=== PATIENT | female | born 1975 | race Caucasian/White ===

== ENCOUNTER 2019-10-20 00:50 | Outpatient (CLI) | payer BC, SELFPAY ==
--- NOTE | 2019-10-20 12:02 | DI.MAMMO_ITS ---
EXAM: MAMMO SCREENING CLINICAL HISTORY: SCREENING, HX OF ABNORMAL MAMMO Z87.898 TECHNIQUE: Mammograms were interpreted according to the usual protocol including computer analysis w [employer] CAD system, tomosynthesis and C-view imaging. COMPARISON: [id number] FINDINGS: The breasts are composed of fibroglandular densities, breast density category B. No suspicious cristofer s or suspicious microcalcifications are seen. There has been no significant change. IMPRESSION: Category 1, negative mammogram. Yearly screening mammography is recommended. BI-RADS Cat 1 - Negative Breast Density - Category B - Scattered areas of fibroglandular density
== END 2019-10-20 01:10 ==
PROVIDERS: PCP Nurse Practitioner Family; Visit Provider Nurse Practitioner Family
DX: Z12.31 Encounter for screening mammogram for malignant neoplasm of breast (principal)
CPT/HCPCS: 77063; 77067

== ENCOUNTER 2019-12-16 15:17 | Outpatient (REF) | payer BC, SELFPAY ==
[2019-12-16 14:56] LABS: Bilirubin Negative (Negative); Blood Small (Negative); Clarity Clear (Clear); Glucose Negative (Negative); Ketones Negative (Negative); Leukocyte Esterase Negative (Negative); Nitrite Negative (Negative); Specific Gravity >= 1.030 (1.005-1.025); Urobilinogen 0.2 EU/dL (Up TO 0.2); pH 5.5 (5-8)
[2019-12-16 15:07] LABS: RBC 0-2 HPF (0-2); WBC 0-2 HPF (0-5)
[2019-12-16 15:08] LABS: Bacteria Negative HPF (Negative); C & S Indicated? No; Casts Negative LPF (Negative); Crystals Negative HPF (Negative); Epithelial Cells Few HPF (Negative); Mucus Negative (Negative)
== END 2019-12-16 15:37 ==
LOC: LBN 15:17
PROVIDERS: PCP Nurse Practitioner Family; Visit Provider Nurse Practitioner Gerontology
DX: R30.0 Dysuria (principal)
CPT/HCPCS: 81003; 81015

== ENCOUNTER 2020-09-22 09:07 | Outpatient (REF) | payer BC, SELFPAY ==
[2020-09-22 19:18] LABS: Anion Gap 10.8 mmol/L (3-11); BUN 14 mg/dL (7-18); CO2 23.2 mmol/L (21.0-32.0); CREATININE 0.92 mg/dL (0.55-1.02); Calcium 8.9 mg/dL (8.5-10.1); Calculated LDL 112 mg/dL (<100); Chloride 102 mmol/L (98-107); Cholesterol 180 mg/dL (<200); Glucose 93 mg/dL (74-106); HDL Cholesterol 37 mg/dL (40-60); Potassium 4.1 mmol/L (3.5-5.1); Sodium 136 mmol/L (136-145); Triglyceride 159 mg/dL (<150)
== END 2020-09-22 09:27 ==
LOC: NCHCN 09:07
PROVIDERS: PCP Nurse Practitioner Family; Visit Provider Nurse Practitioner Family
DX: Z00.00 Encounter for general adult medical examination without abnormal findings (principal)
CPT/HCPCS: 80048; 80061

== ENCOUNTER 2020-10-17 20:38 | Outpatient (REF) | payer BC, SELFPAY ==
[2020-10-20 07:31] LABS: Patient Race White; SARS-CoV-2 RNA Undetected (Undetected); SARS-CoV-2 Specimen Source Nasal
== END 2020-10-17 20:58 ==
LOC: NCHCN 20:38
PROVIDERS: PCP Nurse Practitioner Family; Visit Provider Nurse Practitioner Family
DX: Z20.828 Contact with and (suspected) exposure to other viral communicable diseases (principal)
CPT/HCPCS: U0003

== ENCOUNTER 2020-12-12 16:27 | Outpatient (REF) | payer BC, SELFPAY ==
[2020-12-13 13:30] LABS: COVID-19 RT-PCR UVMMC Result Negative (Negative)
== END 2020-12-12 16:47 ==
LOC: NCHCN 16:27
PROVIDERS: PCP Nurse Practitioner Family; Visit Provider Nurse Practitioner Family
DX: Z20.822 Contact with and (suspected) exposure to COVID-19 (principal)
CPT/HCPCS: U0003

== ENCOUNTER 2020-12-29 00:35 | Outpatient (CLI) | payer BC, SELFPAY ==
--- NOTE | 2020-12-29 | DI.MAMMO_ITS ---
EXAM: MG MAMMO SCREENING CLINICAL HISTORY: SCREENING,Z12.39 TECHNIQUE: Bilateral full field digital CC and MLO mammographic images were obtained with 3D tomosyn thesis and utilizing computer aided detection (CAD). COMPARISON: Available for comparison. FINDINGS: Masses/Architectural Distortion: There is a new partially obscured nodular opacity in the medial left breast on the CC view almost 6 cm from the nipple. There is also an asymmetric density in the poste rior inferior right breast on the mediolateral oblique view. These areas should be further evaluated with spot compression views. Ultrasound may be indicated at that time. Microcalcifications: No suspicious pleomorphic-type are seen. Skin Thickening/Nipple Retraction: None. IMPRESSION: 1. New densities seen in both the left and right breast as described above. 2. These area should be further evaluated with spot compression views. Ultrasound may be indicated a t that time. BI-RADS Category 0 - Assessment Incomplete: Need additional imaging evaluation Breast Density - Category B - Scattered areas of fibroglandular density Breast density category C or D implies that the patient has dense breast tissue. Dense breast tissue is very common and is not abnormal but dense breast tissue can make it harder to find cancer on a ma mmogram. Also, dense breast tissue may increase their breast cancer risk. This information about the result of the mammogram report was provided to the patient to raise their awareness. Use this report when you speak with the patient about their risks for breast cancer, which includes their family hist ory. At that time, you may recommend for more screening tests (Ultrasound or MRI) as they might be us eful based on their risk. A negative radiographic report should not delay biopsy if a dominant or clinically suspicious mass is present. Up to ten percent of cancers are not identified on mammography. A negative report may reinforce clinical impression. Adenosis and dense breasts may obscure an underlying neoplasm. False positive reports average 6 to 10%. Patient will receive a letter notifying them of these results.
== END 2020-12-29 00:36 | disposition home or self-care (01) ==
LOC: DI 00:35
PROVIDERS: PCP Nurse Practitioner Family; Visit Provider Nurse Practitioner Family
DX: Z12.31 Encounter for screening mammogram for malignant neoplasm of breast (principal); R92.8 Other abnormal and inconclusive findings on diagnostic imaging of breast
CPT/HCPCS: 77063; 77067

== ENCOUNTER 2021-01-06 03:01 | Outpatient (CLI) | payer BC, SELFPAY ==
--- NOTE | 2021-01-06 | DI.MAMMO_ITS ---
EXAM: MG MAMMO SCREEN CALL BACK BI CLINICAL HISTORY: F/U MAMMO, BILAT NEW DENSITIES TECHNIQUE: Spot compression views and tomographic imaging were performed of both breasts. COMPARISON: 29 December 2020, 2014 and 2016. FINDINGS: The breasts are composed of scattered fibroglandular densities, Breast Density category B. Left breast: Cc spot compression view of the medial breast was performed. No suspicious masses or suspicious microcalcifications are seen. No persistent suspicious abnormality is seen on the additional views performed. The findings are con sistent with overlying fibroglandular tissue. There has been no significant change from prior exams. Right breast: MLO spot compression view of the inferior breast was performed. No suspicious masses or suspicious microcalcifications are seen. No persistent suspicious abnormality is seen on the additional views performed. The findings are cons istent with overlying fibroglandular tissue. There has been no significant change from prior exams. IMPRESSION: BI-RADS Category 1, Negative Yearly screening mammography is recommended. Breast Density - Category B, scattered fibroglandular densities.
== END 2021-01-06 03:02 ==
LOC: DI 03:01
PROVIDERS: PCP Nurse Practitioner Family; Visit Provider Nurse Practitioner Family
DX: R92.8 Other abnormal and inconclusive findings on diagnostic imaging of breast (principal)
CPT/HCPCS: 77063; 77067

== ENCOUNTER → 2021-03-20 09:45 | Outpatient (CLI) | payer BC, SELFPAY ==
--- NOTE | 2021-03-20 | DI.RAD_ITS ---
EXAM: XR SHOULDER RT COMPLETE 2+V CLINICAL HISTORY: SUBACROMIAL BURSITIS RT, M75.51. TECHNIQUE: 2D digital imaging was performed. COMPARISON: No exams were available for comparison FINDINGS: Is no evidence of fracture or dislocation. However, there are calcifications noted in the subacromia l space consistent with calcific tendinitis-bursitis. On the axial view 1 of these calcifications ap pears to be located posterior to the humeral head. No evidence of Hill-Sachs deformity. IMPRESSION: DATA REPOSITORY: RADIATION DOSE DELIVERED:
--- NOTE | 2021-03-20 | DI.RAD_ITS ---
EXAM: XR HUMERUS RT CLINICAL HISTORY: PAIN RT KAMERON M25.511. TECHNIQUE: 2D digital imaging was performed. COMPARISON: No exams were available for comparison FINDINGS: There is no evidence of fracture. No lytic osseous lesions in the humerus. However, there is a 5 x 4 millimeter calcific density adjacent to the greater tuberosity of the humer al head consistent with calcific rotator cuff tendinitis-bursitis. IMPRESSION: DATA REPOSITORY: RADIATION DOSE DELIVERED:
== END ==
PROVIDERS: PCP Nurse Practitioner Family; Visit Provider Family Medicine
DX: M75.51 Bursitis of right shoulder (principal); M75.31 Calcific tendinitis of right shoulder; M25.511 Pain in right shoulder
CPT/HCPCS: 73030; 73060

== ENCOUNTER 2021-11-23 06:07 | Emergency (ER) | payer BC, SELFPAY ==
[2021-11-23 06:12] VITALS: BP 138/91; PULSE 104; RESP 18; TEMP 36.7; O2SAT 96
--- NOTE | 2021-11-23 06:18 | W.ED.GENAD ---
Discharge Plan Disposition Patient Disposition: HOME Condition: Stable Discharge Details Clinical Impression: Diverticulitis Primary Care Provider: Jyoti Franks ED Provider: Jayesh Jeter Home Meds and New Rx's Prescriptions: New metronidazole 500 mg tablet 500 mg PO Q8H Qty: 21 RF: 0 ciprofloxacin HCl 500 mg tablet 500 mg PO BID Qty: 14 RF: 0 oxycodone 5 mg tablet 5 mg PO Q6H PRN (Reason: pain) Qty: 12 RF: 0 oxycodone 5 mg tablet 5 mg PO Q6H PRNQty: 12 RF: 0 metronidazole 500 mg tablet 500 mg PO Q8H Qty: 21 RF: 0 ciprofloxacin HCl 500 mg tablet 500 mg PO BID Qty: 14 RF: 0 Continued ibuprofen 200 MG tablet 800 mg PO DAILY PRNRF: 0 melatonin 10 MG tablet 10 mg PO HS Qty: 2 RF: 0 cholecalciferol (vitamin D3) 3,000 UNIT tablet 3,000 unit PO DAILY Qty: 90 RF: 5 sumatriptan succinate 100 MG tablet 100 mg PO ONCE Qty: 9 RF: 0 bupropion HCl [Wellbutrin SR] 150 mg tablet sustained-release 12 hr 150 mg PO BID RF: 0 Nicotrol 10 mg cartridge 1 inh IH Q1H PRNRF: 0 Discharge Instructions Instructions: Diverticulitis (ED) Additional Instructions: you can take 1000mg tylenol and 600mg ibuprofen every 6 hours as needed. If you need additional pain relief take 1 oxycodone follow up with your primary care provider within 1 week if you feel more ill, have severe worsening pain or persistent vomit return to the emergency department Medical Decision Making <Evaristo Rangel DO - Last Filed: 11/23/21 06:23> 46-year-old female presents today for left lower quadrant abdominal pain. Patient states that 30 minutes prior to arrival she was awoken out of sleep with severe left lower quadrant sharp abdominal pain. She tried to go to the bathroom this notably worsen the pain. She then came to the emergency department with her significant other, she had notable pain with hitting the bumps on the way over. She for the last 2 days she has had a very mild achiness in the left flank, and then that sharp transition of pain to the lower abdomen 30 minutes ago. She admits to some mild left lower groin pain that is currently present. Pain oscillates from 5 out of 10 to a 10 out of 10. It is notably sharp when severe. She denies any hematuria, vaginal discharge, hematochezia melena or acholic stool. She does admit to some mild loose stool the last 2 days. She denies any vomiting. No other complaints at this time. Pain is made worse with movement and palpation. Improved by nothing. Physical exam demonstrates notable tenderness in the left lower quadrant, no CVA tenderness. No palpable hernia. Differential includes kidney stone, colitis, diverticulitis, ovarian cyst. Symptoms appear slightly inconsistent with ovarian torsion at this time clinically and historically. No ultrasound currently available, we will get CT scan with contrast of the abdomen, manage the patient's pain, rehydrate, monitor closely and reassess. <Jayesh Jeter MD - Last Filed: 11/23/21 09:50> pt feeling better still has tenderness in llq but no guarding and ct shows no abscess or perforation so she is appropriate at present time for outpatient management. 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 HPI Narrative: 46-year-old female presents today for left lower quadrant abdominal pain. Patient states that 30 minutes prior to arrival she was awoken out of sleep with severe left lower quadrant sharp abdominal pain. She tried to go to the bathroom this notably worsen the pain. She then came to the emergency department with her significant other, she had notable pain with hitting the bumps on the way over. She for the last 2 days she has had a very mild achiness in the left flank, and then that sharp transition of pain to the lower abdomen 30 minutes ago. She admits to some mild left lower groin pain that is currently present. Pain oscillates from 5 out of 10 to a 10 out of 10. It is notably sharp when severe. She denies any hematuria, vaginal discharge, hematochezia melena or acholic stool. She does admit to some mild loose stool the last 2 days. She denies any vomiting. No other complaints at this time. Pain is made worse with movement and palpation. Improved by nothing. Related Data Home Medications Medication Instructions Recorded Confirmed ibuprofen 800 mg PO DAILY PRN 06/29/16 11/23/21 cholecalciferol (vitamin D3) 3,000 unit PO DAILY #90 tab 04/23/17 12/16/19 melatonin 10 mg PO HS #2 04/23/17 11/23/21 sumatriptan succinate 100 mg PO ONCE #9 tab-cap 09/24/17 11/23/21 bupropion HCl 150 mg tablet,12 hr 150 mg PO BID 09/30/19 12/16/19 sustained-release nicotine 10 mg inhalation cartridge 1 inh IH Q1H PRN each 09/30/19 11/23/21 ciprofloxacin HCl 500 mg PO BID #14 tab 11/23/21 ciprofloxacin HCl 500 mg PO BID #14 tab 11/23/21 metronidazole 500 mg PO Q8H #21 tab 11/23/21 metronidazole 500 mg PO Q8H #21 tab 11/23/21 oxycodone 5 mg PO Q6H PRN #12 tab 11/23/21 oxycodone 5 mg PO Q6H PRN #12 tab 11/23/21 Previous Rx's Medication Instructions Recorded sumatriptan succinate 100 mg PO ONCE #9 tab-cap 09/24/17 ciprofloxacin HCl 500 mg PO BID #14 tab 11/23/21 ciprofloxacin HCl 500 mg PO BID #14 tab 11/23/21 metronidazole 500 mg PO Q8H #21 tab 11/23/21 metronidazole 500 mg PO Q8H #21 tab 11/23/21 oxycodone 5 mg PO Q6H PRN #12 tab 11/23/21 oxycodone 5 mg PO Q6H PRN #12 tab 11/23/21 Allergies Allergy/AdvReac Type Severity Reaction Status Date / Time Penicillins AdvReac Intermediate stomach Unverified 11/23/21 06:17 cramps and diarrhea venom-honey bee AdvReac Intermediate Swelling/Ed Unverified 11/23/21 06:17 tyra oatmeal topical Allergy Uncoded 05/04/21 11:33 General Stated Complaint: Abd Prob SKYLAR: 3 Review of Systems <Evaristo Rangel DO - Last Filed: 11/23/21 06:23> All systems reviewed & are unremarkable except as noted in HPI and below PFSH <Evaristo Rangel DO - Last Filed: 11/23/21 06:23> All Active Problems (Updated 11/23/21 @ 08:52 by Jayesh Jeter MD) Diverticulitis (Chronic) Microscopic hematuria (Acute) Urinary incontinence (Acute) Bilateral primary osteoarthritis of hip (Acute) Medical History Abnormal mammogram Abnormal uterine bleeding (AUB) Degenerative joint disease (DJD) of hip Dysplasia of cervix Fatigue Heavy menstrual bleeding Migraine Obesity Tobacco use Surgical History H/O right breast biopsy Social History Smoking/Tobacco Use Status: Current every day Tobacco Type: cigarettes Smoking risk assessment performed?: Yes Alcohol Intake: current Alcohol Intake frequency: holidays/special occasions only Drug use: Never Substance use type: does not use Do you feel safe at home: Yes Do you feel safe in your relationship?: Yes Exam <Evaristo Rangel DO - Last Filed: 11/23/21 06:23> Narrative Exam Narrative: 1.Const: Well-nourished, Well-developed, appearing stated age 2.Eyes: PERRL, no conjunctival injection, and symmetrical lids. 3.ENT: Atraumatic external nose and ears. Moist MM. Neck: Symmetric, trachea midline, No thyromegaly. 4.CVS: +S1/S2, No murmurs or gallops. Peripheral pulses 2+ and equal in all extremities. Brisk capillary refill in all extremities. 5.RESP: Unlabored respiratory effort. Clear to auscultation bilaterally. No wheezes rales or rhonchi 6.GI: Soft, nondistended. No left CVA or flank tenderness on percussion. No pain to McBurney's point, negative Whittaker sign. Patient does have notable left reproducible pain in the left lower quadrant. Positive psoas sign. Positive heel strike test on the left lower extremity. No hernia palpable in the inguinal canal. 7.MSK: Normocephalic/Atraumatic, Extremities w/o deformity or ttp No cyanosis or clubbing, Normal movement of all extremities 8.Skin: Warm, Dry. No rashes or lesions. 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 Sensation grossly intact, no focal neurologic deficits. 10.Psych: (AAO) x3. Appropriate mood and affect Course <Evaristo Rangel DO - Last Filed: 11/23/21 06:23> Vital Signs Vital signs: Vital Signs Temperature 36.7 C 11/23/21 06:12 Pulse 104 H 11/23/21 06:12 Respiratory Rate 18 11/23/21 06:12 Blood Pressure 138/91 H 11/23/21 06:12 Pulse Oximetry 96 11/23/21 06:12 Temperature 36.7 C 11/23/21 06:12 Temperature Source Temporal Artery Scan 11/23/21 06:12 Pulse 104 H 11/23/21 06:12 Respiratory Rate 18 11/23/21 06:12 Blood Pressure 138/91 H 11/23/21 06:12 Blood Pressure Position Sitting 11/23/21 06:12 Pulse Oximetry 96 11/23/21 06:12 Oxygen Delivery Method Room Air 11/23/21 06:12 Oxygen Flow Rate 0 11/23/21 06:12 Sign Out <Evaristo Rangel DO - Last Filed: 11/23/21 06:23> Sign Out Data: Sign Out Comment: Left lower quadrant abdominal pain. Pending CAT scan Last updated by Evaristo Rangel DO at 11/23/21 07:42
[2021-11-23] MEDS: Normal Saline 1,000 ML 1000 ML IV (06:35)
[2021-11-23 06:40] LABS: Abs Immature Grans 0.05 10^3/uL (0.0-0.06); Absolute Basophil Count 0.09 10^3/uL (0.0-0.2); Absolute Lymphocyte Count 2.77 10^3/uL (1.2-3.4); Absolute Monocyte Count 1.15 10^3/uL (0.1-0.8); Absolute Neutrophil Count 7.02 10^3/uL (1.2-6.7); Basophils % 0.8; Eosinophils % 2.6; HCT 40.8 % (36.0-46.0); HGB 13.5 g/dL (11.2-15.7); Immature Grans % 0.4; Lymphocytes % 24.4; MCHC 33.1 % (32.0-36.0); MCV 93.6 fL (80-95); MPV 10.3 fL (8.0-11.0); Monocytes % 10.1; Neutrophils % 61.7; Nucleated RBC 0 %; Platelet Count 238 10^3/uL (130-400); RBC 4.36 10^6/uL (3.93-5.22); RDW 12.6 % (11.7-14.6); RDW-SD 43.5 fL; WBC 11.37 10^3/uL (4.4-10.8)
[2021-11-23 07:00] LABS: ALT 25 U/L (14-59); AST 15 U/L (15-37); Albumin 3.6 g/dL (3.4-5.0); Alkaline Phosphatase 143 U/L (46-116); Anion Gap 7.7 mmol/L (3-11); BUN 15 mg/dL (7-18); Bilirubin, Total 0.4 mg/dL (0.2-1.0); CO2 26.3 mmol/L (21.0-32.0); CREATININE 0.8 mg/dL (0.55-1.02); Calcium 8.5 mg/dL (8.5-10.1); Chloride 102 mmol/L (98-107); Glucose 99 mg/dL (74-106); Potassium 3.8 mmol/L (3.5-5.1); Sodium 136 mmol/L (136-145)
[2021-11-23 07:15] LABS: Bilirubin Negative (Negative); Blood Trace-intact (Negative); Clarity Clear (Clear); Glucose Negative (Negative); Ketones Negative (Negative); Leukocyte Esterase Negative (Negative); Nitrite Negative (Negative); Specific Gravity >= 1.030 (1.005-1.025); Urobilinogen 0.2 EU/dL (Up TO 0.2); pH 5.5 (5-8)
[2021-11-23] MEDS: Omnipaque 350 MG/ML 100 ML BTL IJ (07:16)
[2021-11-23 07:25] LABS: WBC Negative HPF (0-5)
[2021-11-23 07:26] LABS: Bacteria Rare HPF (Negative); C & S Indicated? No; Casts Negative LPF (Negative); Crystals Negative HPF (Negative); Epithelial Cells Few HPF (Negative); Mucus Negative (Negative)
--- NOTE | 2021-11-23 07:30 | DI.CT_ITS ---
Exam(s) CT ABDOMEN PELVIS W EXAM: CT ABDOMEN PELVIS W CLINICAL HISTORY: left lower abdominal pain. TECHNIQUE: Imaging Protocol: Axial computed tomography images with coronal and sagittal reformatted images were created and reviewed CONTRAST MATERIAL: Intravenous: Omnipaque 100cc Oral: None COMPARISON: No exams were available for comparison FINDINGS: VISUALIZED LUNG BASES: No nodules nor pleural effusions evident. ABDOMEN: There is no ascites. LIVER: There are no focal hepatic lesions evident. There is an element of steatosis. GALLBLADDER/BILIARY: No obvious gallbladder pathology. CBD is not dilated. PANCREAS: No evidence of pancreatic mass nor dilatation of the pancreatic duct. SPLEEN: Spleen is not enlarged. No obvious intrasplenic lesions. Splenic and portal veins are paten t. ADRENALS: There are no significant adrenal masses. KIDNEYS:No cysts evident. No solid renal masses. No calculi nor hydronephrosis.. ABDOMINAL AORTA: Abdominal aorta is not enlarged. LYMPH NODES:There is no retroperitoneal nor paraaortic adenopathy. ABDOMINAL WALL: No evidence of significant anterior abdominal wall nor inguinal hernia. PELVIS: GI: No evidence of appendicitis.There is sigmoid diverticulosis. There is also abnormal streaking ar ound diverticuli in the left iliac fossa consistent with acute diverticulitis. There is no abscess a t this time. LYMPH NODES: There is no intrapelvic nor inguinal adenopathy. REPRODUCTIVE: Slight prominence of the endometrium noted. There is also a cyst in the right ovary me asuring 2 x 1.8 cm. Cyst in the left ovary also noted measuring 1.7 x 1.5 cm. No free fluid in the cul-de-sac. URINARY BLADDER: Partially obscured by beam hardening artifact from bilateral hip prostheses. OSSEOUS: No significant osseous lesions. IMPRESSION: 1. Findings are consistent with acute sigmoid diverticulitis. Is no abscess at this time. No air in the portal venous system. No evidence of hepatic abscess. 2. Bilateral hip prostheses are noted 3. Bilateral ovarian cysts and slight prominence of the endometrium. These findings can be further s tudied with ultrasound. Report called by myself to ER physician. RADIATION DOSE DELIVERED: 1,206mGy.cm Total DLP DATA REPOSITORY: All CT scans at this facility are submitted to the National Radiology Data Registry (NRDR) Dose Index Registry (DIR) with the [employer] (A[employer]). RADIATION OPTIMIZATION: All CT scans at this facility use at least one of these dose optimization te chniques: automated exposure control; mA and/or kV adjustment per patient size (includes targeted exa ms where dose is matched to clinical indication); or iterative reconstruction.
[2021-11-23] MEDS: metroNIDAZOLE 500 MG/100 ML BAG 100 MG IVPB (07:56)
[2021-11-23 07:57] VITALS: BP 123/71; PULSE 77; TEMP 35.9; O2SAT 95
[2021-11-23] MEDS: oxyCODONE 5 MG TAB PO (08:53)
[2021-11-23] MEDS: CIPROFLOXACIN 400 MG/200 ML BAG 200 MG IVPB (08:54)
[2021-11-23 09:04] VITALS: BP 114/74; PULSE 71; TEMP 35.7; O2SAT 93
[2021-11-23 10:11] VITALS: BP 118/69; PULSE 89; TEMP 36.3; O2SAT 95
[2021-11-23 10:19] VITALS: BP 118/69; PULSE 89; RESP 18; TEMP 36.3; O2SAT 95
== END 2021-11-23 10:19 | disposition home or self-care (01) ==
PROVIDERS: Student in an Organized Health Care Education/Training Program; Emergency Provider Emergency Medicine; PCP Nurse Practitioner Family
DX: K57.92 Diverticulitis of intestine, part unspecified, without perforation or abscess without bleeding (principal)
CPT/HCPCS: 36415; 80053; 81025; 96361; 96365; 96367; 96375; 99285; 74177; 81003; 81015; 85025; 99284; J0744; J3490

== ENCOUNTER 2023-07-22 14:35 | Outpatient (REF) | payer BC, SELFPAY ==
--- NOTE | 2023-07-22 14:30 | PAPFT_PTH ---
PATIENT: Chhaya Zafar LOC: [facility] U#:[id number] AGE/SX: 47/F ROOM: RE07/22/[address]: HIEN MISHRA : 1975 BED: DIS: 07/22/2023 SPEC #: [id number] RECD: 07/22/23 18:36 STATUS: JEROME REQ #: [id number] JOHN: 07/22/23 14:[address]: Hien Mishra DEPT: [facility] Cytology RECD BY: Tanya Higgins ENTERED: 07/22/23 18:36 SP TYPE: PAPFT OTHR DR: Jyoti Franks Tissues: 1 - CX/ENDOCX FOR PAP SMEARS Procedures: PAP THIN PREP/UVM Screening HPV DNA PROBE Comments: [id number]
[2023-07-22 19:47] LABS: HGB 13.9 g/dL (11.2-15.7); MCH 31.4 pg (27.0-33.0); MCHC 33.9 % (32.0-36.0); MCV 93 fL (80-95); MPV 10.9 fL (8.0-11.0); Platelet Count 264 10^3/uL (130-400); RBC 4.43 10^6/uL (3.93-5.22); RDW 13.1 % (11.7-14.6); RDW-SD 44.5 fL; WBC 8.25 10^3/uL (4.4-10.8)
[2023-07-22 20:11] LABS: Hemoglobin A1C 5.4 % (<5.7)
[2023-07-22 20:40] LABS: ALT 35 U/L (14-59); AST 22 U/L (15-37); Albumin 4.1 g/dL (3.4-5.0); Alkaline Phosphatase 149 U/L (46-116); BUN 15 mg/dL (7-18); Bilirubin, Total 0.4 mg/dL (0.2-1.0); CREATININE 0.9 mg/dL (0.55-1.02); Calcium 9.3 mg/dL (8.5-10.1); Calculated LDL 94 mg/dL (<100); Chloride 103 mmol/L (98-107); Cholesterol 188 mg/dL (<200); Estimated GFR 78.86 (mL/min/1.73m2); Glucose 107 mg/dL (74-106); HDL Cholesterol 39 mg/dL (40-60); Sodium 138 mmol/L (136-145); TSH 1.14 uIU/mL (0.36-3.74); Total Protein 7.1 g/dL (6.4-8.2); Triglyceride 276 mg/dL (<150)
[2023-07-22 21:28] LABS: Iron 100 ug/dL (50-170); Total Iron Binding Capacity 317 ug/dL (250-450); Transferrin Sat 32 % (15-50)
[2023-07-22 22:42] LABS: Vitamin D 25 Total 24.1 ng/mL (30-100)
== END 2023-07-22 14:36 | disposition home or self-care (01) ==
LOC: LBN 14:35
PROVIDERS: PCP Nurse Practitioner Family; Visit Provider Nurse Practitioner Family
DX: Z00.00 Encounter for general adult medical examination without abnormal findings (principal); Z86.2 Personal history of diseases of the blood and blood-forming organs and certain disorders involving the immune mechanism; Z13.220 Encounter for screening for lipoid disorders; E55.9 Vitamin D deficiency, unspecified; E66.8 Other obesity; Z13.1 Encounter for screening for diabetes mellitus; Z12.4 Encounter for screening for malignant neoplasm of cervix; Z11.51 Encounter for screening for human papillomavirus (HPV); R79.89 Other specified abnormal findings of blood chemistry
CPT/HCPCS: 80053; 80061; 82306; 85027; 88142; 83036; 83540; 83550; 84443; 87624

== ENCOUNTER → 2023-07-31 01:57 | Outpatient (CLI) | payer BC, SELFPAY ==
--- NOTE | 2023-07-31 | DI.MAMMO_ITS ---
Exam(s) MAMMO SCREENING EXAM: MAMMO SCREENING CLINICAL HISTORY: SCREENING FOR BREAST CANCER Z12.39 PREVENTATIVE Z00.00 HX ABNL MAMMO Z87.89 TECHNIQUE: Bilateral full field digital CC and MLO mammographic images were obtained with 3D tomosyn thesis and utilizing computer aided detection (CAD). COMPARISON: Available for comparison. FINDINGS: Masses/Architectural Distortion: There is a new nodular density seen in the outer left breast on the craniocaudad view. This area should be further evaluated with spot compression views. On the left M LO view, there are 2 nodular areas seen in the upper half of the breast which should also be evaluate d. Microcalcifications: No suspicious pleomorphic-type are seen. Skin Thickening/Nipple Retraction: None. IMPRESSION: 1. Left breast nodules. These area should be further evaluated with spot compression views. 2. Ultrasound may be indicated at that time. BI-RADS Category 0 - Assessment Incomplete: Need additional imaging evaluation Breast Density - Category C - Heterogeneously dense Breast density category C or D implies that the patient has dense breast tissue. Dense breast tissue is very common and is not abnormal but dense breast tissue can make it harder to find cancer on a ma mmogram. Also, dense breast tissue may increase their breast cancer risk. This information about the result of the mammogram report was provided to the patient to raise their awareness. Use this report when you speak with the patient about their risks for breast cancer, which includes their family hist ory. At that time, you may recommend for more screening tests (Ultrasound or MRI) as they might be us eful based on their risk. A negative radiographic report should not delay biopsy if a dominant or clinically suspicious mass is present. Up to ten percent of cancers are not identified on mammography. A negative report may reinforce clinical impression. Adenosis and dense breasts may obscure an underlying neoplasm. False positive reports average 6 to 10%. Patient will receive a letter notifying them of these results.
== END ==
PROVIDERS: PCP Nurse Practitioner Family; Visit Provider Nurse Practitioner Family
DX: Z12.31 Encounter for screening mammogram for malignant neoplasm of breast (principal); R92.8 Other abnormal and inconclusive findings on diagnostic imaging of breast
CPT/HCPCS: 77063; 77067

== ENCOUNTER → 2023-08-02 00:49 | Outpatient (CLI) | payer BC, SELFPAY ==
--- NOTE | 2023-08-02 | DI.MAMMO_ITS ---
Exam(s) MG MAMMO SCREEN CALL BACK UNI US BREAST LT COMPLETE EXAM: MG MAMMO SCREEN CALL BACK UNI and U/S breast LT complete CLINICAL HISTORY: LEFT BREAST NODULES R92.8 ABNL MAMMO. TECHNIQUE: Craniocaudal and mediolateral oblique Full Field Digital Mammography views of the left br east with Computer Aided Diagnosis followed by Tomosynthesis and left breast ultrasound. COMPARISON: Comparison is made with prior examinations. FINDINGS: Mammography/Tomosynthesis: Masses/Architectural Distortion: The elongated 1.4 cm ovoid nodule in the upper posterior left breast is again seen. On the CC view it would appear to be located in the outer quadrant. The 2nd nodule in the upper outer quadrant of the left breast faintly persists particularly on the CC view. No area s of architectural distortion are seen. Microcalcifictions: No suspicious pleomorphic-type are seen. Skin Thickening/Nipple Retraction: None. Complete left breast US: Echotexture: Normal appearance of the glandular tissue. Shadowing: No suspicious foci. Cyst: At the 1 o'clock position of the left breast 1 cm from the nipple there is a 0.4 cm cyst presen t. There is also a 0.8 x 0.2 x 0.5 cm simple cyst. There is a complex cyst seen at the 5 o'clock po sition of the left breast 1 cm from the nipple measuring 0.8 x 0.3 x 1.1 cm. Solid lesions: There is a complex cystic lesion at 8 o'clock at 3 cm from the nipple measuring 0.4 cm maximally. No suspicious cystic or solid masses are seen at this time. Ductal dilation: None. IMPRESSION: 1. No definite evidence of malignancy is noted. 2. A six-month follow-up mammogram and ultrasound are requested for re-evaluation. 3. The findings were discussed with the patient on the date of the examination. BI-RADS Category 3 - 6 month - Probably Benign Finding: Recommend follow-up imaging in 6 months Breast Density - Category B - Scattered areas of fibroglandular density Breast density Category C or D implies that the patient has dense breast tissue. Dense breast tissue can make it harder to find cancer on a mammogram. Dense breast tissue is also associated with an incr eased risk of breast cancer. This information about the result of the mammogram report was provided to the patient to raise their awareness. Use this report when you speak with the patient about their risks for breast cancer, which includes their family history. At that time, you may recommend additional screening tests (Ultrasoun d or MRI) as these tests may add significant information. A negative radiographic report should not delay biopsy if a dominant or clinically suspicious mass is present. Up to ten percent of cancers are not identified on mammography. A negative report may reinforce clinical impression. Adenosis and dense breasts may obscure an underlying neoplasm. False positive reports average 6 to 10%. Patient will receive a letter notifying them of these results.
== END ==
PROVIDERS: PCP Nurse Practitioner Family; Visit Provider Nurse Practitioner Family
DX: Z12.31 Encounter for screening mammogram for malignant neoplasm of breast (principal); N63.21 Unspecified lump in the left breast, upper outer quadrant
CPT/HCPCS: 76642; 77063; 77067

== ENCOUNTER → 2024-02-04 00:51 | Outpatient (CLI) | payer BC, SELFPAY ==
--- NOTE | 2024-02-04 | DI.US_ITS ---
Exam(s) US BREAST LT COMPLETE MG MAMMO DIAGNOSTIC UNI EXAM: MG MAMMO DIAGNOSTIC UNI-LEFT AND COMPLETE LEFT BREAST ULTRASOUND CLINICAL HISTORY: ABNL MAMMO R92.8 6 MO FU. TECHNIQUE: Both CC and MLO breast mammographic images were obtained with 3D tomosynthesis technique and utilizing computer aided detection (CAD). Complete left breast ultrasound was performed including all 4 quadrants and the axillary region COMPARISON: Prior mammograms were reviewed, the most recent being July 2023. Prior ultrasound July 2023 also reviewed. FINDINGS: DIAGNOSTIC LEFT BREAST MAMMOGRAM: Previously described nodular density remains unchanged. There are no new spiculated masses nor malig nant-appearing microcalcification groups. No new architectural distortion or skin thickening-retraction COMPLETE LEFT BREAST ULTRASOUND: At the 1 o'clock position the 2 previously described benign-appearing microcyst are again noted, unch anged. The larger of these 2 measures 7 x 3 mm. At the 2 o'clock position there are multiple tiny benign microcysts measuring up to 3 mm. At the 5 o'clock position there is a 4 x 2 millimeter benign microcyst again noted. At the 8 o'clock position there is again noted and unchanged wider than taller 4 x 2 millimeter nodul e which is probably a hemorrhagic microcyst, unchanged. There are no new focal ultrasound findings in the left breast. Scanning of the left axilla is negative for adenopathy. IMPRESSION: Stable benign-appearing left breast findings as described above. Appropriate follow-up is to repeat the ultrasound at the time of her next yearly bilateral mammogram which would be in 6 months. The patient was informed of the findings and follow-up recommendations by myself prior to leaving the department today. BI-RADS Category 3 - 6 month - Probably Benign Finding: Recommend follow-up mammography in 6 months Breast Density - Category B - Scattered areas of fibroglandular density Breast density Category C or D implies that the patient has dense breast tissue. Dense breast tissue can make it harder to find cancer on a mammogram. Dense breast tissue is also associated with an incr eased risk of breast cancer. This information about the result of the mammogram report was provided to the patient to raise their awareness. Use this report when you speak with the patient about their risks for breast cancer, which includes their family history. At that time, you may recommend additional screening tests (Ultrasoun d or MRI) as these tests may add significant information. A negative radiographic report should not delay biopsy if a dominant or clinically suspicious mass is present. Up to ten percent of cancers are not identified on mammography. A negative report may reinforce clinical impression. Adenosis and dense breasts may obscure an underlying neoplasm. False positive reports average 6 to 10%. Patient will receive a letter notifying them of these results.
== END ==
PROVIDERS: PCP Nurse Practitioner Family; Visit Provider Nurse Practitioner Family
DX: Z12.31 Encounter for screening mammogram for malignant neoplasm of breast (principal); R92.8 Other abnormal and inconclusive findings on diagnostic imaging of breast
CPT/HCPCS: 76642; 77061; 77065; G0279

== ENCOUNTER 2024-07-30 06:19 | Emergency (ER) | payer BC, SELFPAY ==
[2024-07-30 06:25] VITALS: BP 168/79; PULSE 108; RESP 18; TEMP 36.5; O2SAT 98
--- NOTE | 2024-07-30 06:48 | ED.GENADUL_ITS ---
Discharge Plan Discharge Details Chief Complaint: Abd Prob Primary Care Provider: Unknown,Unknown ED Provider: Natalie Wright Home Meds and New Rx's Prescriptions: No Action ibuprofen 200 MG tablet 800 mg PO DAILY PRN cholecalciferol (vitamin D3) 3,000 UNIT tablet 3,000 unit PO DAILY Qty: 90 Rx Instructions: 1 tab PO daily sumatriptan succinate 100 MG tablet 100 mg PO ONCE Qty: 9 0RF Rx Instructions: Take at onset of migraine headache. Ok to take a second if no improvement after 1 hr. No more than 2 in a 24hour period. HPI General Mode of arrival: ambulatory . Date/Time Provider Initiated Documentation: 07/30/24 06:24 . Limitations to Documentation: no limitations . Information obtained by: patient and old records reviewed . HPI Narrative: 48yo F with hx one episode of prior diverticulitis several years ago presenting for left sided abdominal pain. Pain started yesterday, initially moderate now severe, worse with moving or trying to stand up straight. Unrelieved by home tylenol and ibuprofen. No nausea, vomiting, constipation, diarrhea, melena, bloody stool, dysuria, hematuria, or vaginal discharge. Also reports left ear fullness without pain after day at beach earlier this week. Otherwise in her usual state of health with no fevers, chills, rash, chest pain, shortness of br eath, or other concerns. Related Data Home Medications ?Medication ?Instructions ?Recorded ?Confirmed ibuprofen 200 mg tablet 800 mg PO DAILY PRN 06/29/16 07/30/24 cholecalciferol (vitamin D3) 75 3,000 unit PO DAILY #90 tabs 04/23/17 07/30/24 mcg (3,000 unit) tablet sumatriptan succinate 100 mg tablet 100 mg PO ONCE #9 tab-caps 09/24/17 07/30/24 Previous Rx's ?Medication ?Instructions ?Recorded sumatriptan succinate 100 mg tablet 100 mg PO ONCE #9 tab-caps 09/24/17 Allergies Allergy/AdvReac Type Severity Reaction Status Date / Time Penicillins AdvReac Intermediate stomach Unverified 07/30/24 06:28 cramps and diarrhea venom-honey bee AdvReac Intermediate Swelling/Ed Unverified 07/30/24 06:28 tyra General Stated Complaint: Abd Prob SKYLAR: 3 Review of Systems Narrative: see HPI Exam Narrative Exam Narrative: General: Alert, well appearing, well nourished, in no acute distress. Head: Normocephalic, atraumatic Neck: Trachea midline, ?Neck supple. ENT: ?MMM.? No oropharygeal lesions or exudate. TM's clear bilaterally. Cardiac: ?RRR, no murmurs appreciated Resp: No respiratory distress. CTAB. Abd: ?Soft, non-distended, left mid-abdomen TTP with no rebound or guarding. : ?No suprapubic tenderness. Extremities: ?No deformities.? No peripheral edema. Neurologic: GCS 15. ? Moves all extremities freely against gravity Course Vital Signs Vital signs: Vital Signs Temperature 36.5 C 07/30/24 06:25 Pulse 108 H 07/30/24 06:25 Respiratory Rate 18 07/30/24 06:25 Blood Pressure 168/79 H 07/30/24 06:25 Pulse Oximetry 98 07/30/24 06:25 Temperature 36.5 C 07/30/24 06:25 Temperature Source Oral 07/30/24 06:25 Pulse 108 H 07/30/24 06:25 Respiratory Rate 18 07/30/24 06:25 Respiratory Effort Normal, Non-Labored 07/30/24 06:27 Blood Pressure 168/79 H 07/30/24 06:25 Blood Pressure Position Sitting 07/30/24 06:25 Pulse Oximetry 98 07/30/24 06:25 Oxygen Delivery Method Room Air 07/30/24 06:25 Oxygen Flow Rate 0 07/30/24 06:25 Pain Level 8 07/30/24 06:25 Medical Decision Making 48yo F with hx one episode of prior diverticulitis several years ago presenting for left sided abdominal pain. Pain started yesterday, initially moderate now severe, worse with moving or trying to stand up straight. Tachycardiac on arrival after ambulating into department, vital signs otherwise reassuring. Well appearing on exam, does have significant left abdominal tenderness and left sided abdominal pain with palpation of right abdomen. Not overtly septic; would not treat empirically. Concerning for acute intrabdominal pathology, diverticulitis, colitits, etc. Less likely ovarian/pelvic pathology, nephrolithiasis; unlikely ectopic or torsion. Will evaluate initially with labs, UA, CT imaging. If CT negative would consider US once they are available during the day. -Tylenol & toradol for pain -Labs reviewed as below, CBC with mild leukocytosis at 12, CMP with no actionable abnormalities, lactate normal, hcg negative Signed out to oncoming physician, pt pending urine and CT. Quality:SDOH Health Related Social Needs: No Data to Display PFSH All Active Problems (Updated 12/24/21 @ 00:03 by JULIANE RANGEL) Microscopic hematuria (Acute) Urinary incontinence (Acute) Bilateral primary osteoarthritis of hip (Acute) Medical History Abnormal mammogram Abnormal uterine bleeding (AUB) Degenerative joint disease (DJD) of hip Dysplasia of cervix Fatigue Heavy menstrual bleeding Migraine Obesity Tobacco use Surgical History H/O right breast biopsy Social History Smoking/Tobacco Use Status: Current every day Tobacco Type: cigarettes Smoking risk assessment performed?: Yes Alcohol Intake: current Alcohol Intake frequency: holidays/special occasions only Drug use: Never Substance use type: does not use Do you feel safe at home: Yes Do you feel safe in your relationship?: Yes
[2024-07-30 07:03] LABS: Abs Immature Grans 0.05 10^3/uL (0.0-0.06); Absolute Eosinophil Count 0.22 10^3/uL (0.0-0.7); Absolute Lymphocyte Count 2.32 10^3/uL (1.2-3.4); Absolute Monocyte Count 1.07 10^3/uL (0.1-0.8); Absolute Neutrophil Count 8.53 10^3/uL (1.2-6.7); Basophils % 0.8 %; Eosinophils % 1.8 %; HCT 41.7 % (36.0-46.0); HGB 13.8 g/dL (11.2-15.7); Immature Grans % 0.4 %; Lymphocytes % 18.9 %; MCH 31.1 pg (27.0-33.0); MCHC 33.1 % (32.0-36.0); MCV 94 fL (80-95); MPV 10.4 fL (8.0-11.0); Monocytes % 8.7 %; Neutrophils % 69.4 %; Platelet Count 238 10^3/uL (130-400); RBC 4.44 10^6/uL (3.93-5.22); RDW 12.6 % (11.7-14.6); RDW-SD 43.6 fL; WBC 12.29 10^3/uL (4.4-10.8)
[2024-07-30 07:09] LABS: Lactate 1.2 mmol/L (0.6-1.4)
[2024-07-30 07:15] LABS: ALT 38 U/L (14-59); AST 17 U/L (15-37); Albumin 3.9 g/dL (3.4-5.0); Alkaline Phosphatase 139 U/L (46-116); Anion Gap 11.3 mmol/L (3-11); BUN 13 mg/dL (7-18); Bilirubin, Total 0.69 mg/dL (0.2-1.0); CO2 25.7 mmol/L (21.0-32.0); CREATININE 0.9 mg/dL (0.55-1.02); Calcium 9.1 mg/dL (8.5-10.1); Chloride 102 mmol/L (98-107); Estimated GFR 78.37 (mL/min/1.73m2); Glucose 148 mg/dL (74-106); HCG Quant, Pregnancy 2 mIU/mL (1-3); Potassium 3.8 mmol/L (3.5-5.1); Sodium 139 mmol/L (136-145); Total Protein 7.4 g/dL (6.4-8.2)
[2024-07-30] MEDS: ACETAMINOPHEN 1,000 MG/100 ML BTL 400 MG IVPB (07:21)
[2024-07-30] MEDS: Ketorolac 15 MG/ML VIAL IVP (07:21)
[2024-07-30] MEDS: Omnipaque 350 MG/ML 100 ML BTL IJ (07:35)
[2024-07-30 07:37] LABS: Bilirubin Negative (Negative); Blood Trace-intact (Negative); Clarity Clear (Clear); Glucose Negative (Negative); Ketones Negative (Negative); Leukocyte Esterase Trace (Negative); Nitrite Positive (Negative); Specific Gravity 1.025 (1.005-1.025); Urobilinogen 0.2 mg/dL (Up to 0.2); pH 6.5 (5-8)
[2024-07-30 07:48] VITALS: BP 145/76; PULSE 92; RESP 18; O2SAT 98
[2024-07-30 07:50] LABS: Bacteria Many HPF (Negative); C & S Indicated? No/Sq. Contamination; Casts Negative LPF (Negative); Crystals Negative HPF (Negative); Epithelial Cells Moderate HPF (Negative); Mucus Negative (Negative); WBC 20-50 HPF (0-5)
--- NOTE | 2024-07-30 07:53 | DI.CT_ITS ---
Exam(s) CT ABDOMEN PELVIS W EXAM: CT ABDOMEN PELVIS W CLINICAL HISTORY: left sided abd pain, hx diverticulitits TECHNIQUE: Imaging Protocol: Axial computed tomography images with coronal and sagittal reformatted images were created and reviewed. CONTRAST MATERIAL: Intravenous: Omnipaque 350 Contrast volume:100 mL Oral: No COMPARISON: CT CT ABDOMEN PELVIS W from 11/23/2021 FINDINGS: ABDOMEN: Lung Bases: Normal where visualized. Liver: Decreased attenuation of the liver consistent with fatty infiltration. The liver is enlarged. No measurable mass. Portal, Superior Mesenteric, and Splenic Veins: Unremarkable. Gallbladder and Biliary Tract: No radiodense calculus or dilation. Pancreas: Normal density, no abnormal calcifications or inflammatory process. Spleen: Normal. Adrenals: No masses seen. Kidneys: Normal size, contour and axis. No radiodense stones or obstructive uropathy. No masses seen. Abdominal Aorta: Abdominal portion non-dilated. Atherosclerotic calcification is present Bowel: There diverticula in the colon. There is bowel wall thickening seen in the proximal sigmoid c olon with pericolonic inflammatory changes consistent with acute diverticulitis. No abscess or free air is seen. There is no evidence of bowel obstruction. There is no evidence of appendicitis. Peritoneal Cavity: No ascites, collection or mesenteric inflammatory response. No free air. Lymph Nodes: Within normal limits. Bones: Within normal limits for the patient's age. There are bilateral total hip replacements. Soft Tissues: Unremarkable. PELVIS: Bladder: Portions of the urinary bladder obscured by artifact from the patient's bilateral total hip replacements. No gross abnormalities identified. Reproductive Organs: Unremarkable as visualized. Lymph Nodes: Within normal limits. Bones: Within normal limits for the patient's age. IMPRESSION: 1. Acute sigmoid diverticulitis. No abscess or free air. 2. Findings were discussed with Dr. Hook at 8:17 a.m. on 07/30/2024. RADIATION DOSE DELIVERED: 674.17mGy.cm Total DLP DATA REPOSITORY: All CT scans at this facility are submitted to the National Radiology Data Registry (NRDR) Dose Index Registry (DIR) with the [employer] (A[employer]). RADIATION OPTIMIZATION: All CT scans at this facility use at least one of these dose optimization te chniques: automated exposure control; mA and/or kV adjustment per patient size (includes targeted exa ms where dose is matched to clinical indication); or iterative reconstruction.
--- NOTE | 2024-07-30 08:22 | ED.PROG_ITS ---
Date of service: 07/30/24 Time of Service: 08:22 Medical Decision Making Patient I received signout this 48-year-old female pending CT scan in setting of left lower quadrant tenderness similar to prior episodes of diverticulitis. I received a call from radiology, Dr. Carvajal. He reported that the patient had di verticulitis but no signs of perforation or abscess. Will reassess the patient. 8:33 PM I reassessed the patient following her CT scan which showed uncomplicated diverticulitis but no signs of perforation or microabscess. Patient was feeling well. She had not vomited in the ED. She did have a nitrite positive urinalysis however she had no dysuria nor frequency so my suspicion was highest for asymptomatic bacteriuria so I did not target her antibiotics to treat her urine. I did give her return indications including dysuria frequency and inability to tolerate her oral antibiotics. Will treat with amoxicillin clavulanic acid. Will advised bland diet and ensure she stays hydrated with plenty of liquids. We discussed ED return for nausea vomiting fevers worsening abdominal pain. She understood her return indications and was discharged with empiric trial of expectant outpatient management. Quality:[facility] Health Related Social Needs: No Data to Display Sign Out Sign Out Data: Sign Out Comment: 48yo F, left mid abdominal pain and tenderness, similar to prior divertic. Systemically well. Pending UA and CT. Last updated by Natalie Wright MD at 07/30/24 07:47 Discharge Plan Disposition Patient Disposition: Home Discharge Details Clinical Impression: Bacteriuria, Acute diverticulitis Primary Care Provider: Unknown,Unknown ED Provider: Fredy Hook Home Meds and New Rx's Prescriptions: New amoxicillin-pot clavulanate 875-125 mg tablet 1 tab PO BID 7 Days Qty: 14 0RF Continued ibuprofen 200 MG tablet 800 mg PO DAILY PRN cholecalciferol (vitamin D3) 3,000 UNIT tablet 3,000 unit PO DAILY Qty: 90 Rx Instructions: 1 tab PO daily sumatriptan succinate 100 MG tablet 100 mg PO ONCE Qty: 9 0RF Rx Instructions: Take at onset of migraine headache. Ok to take a second if no improvement after 1 hr. No more than 2 in a 24hour period. Discharge Instructions Instructions: Diverticulitis (DC) Additional Instructions: You were seen in the emergency department for your abdominal pain. You are found to have diverticulitis. Please return to the emergency department if you develop burning when you urinate, cannot tolerate your antibiotics as result of nausea or vomiting or if you have any other concerns. Otherwise please follow- up with your primary care provider. Discharge Data Discharge Date/Time-TO BE ENTERED AT DEPARTURE: 07/30/24 08:56
[2024-07-30] MEDS: Amoxicillin 875/Clav. 125 TAB PO (08:38)
[2024-07-30 08:56] VITALS: BP 153/83; PULSE 83; RESP 18; O2SAT 97
== END 2024-07-30 08:56 | disposition home or self-care (01) ==
PROVIDERS: Student in an Organized Health Care Education/Training Program; Emergency Provider Emergency Medicine
DX: R10.32 Left lower quadrant pain (principal); K57.92 Diverticulitis of intestine, part unspecified, without perforation or abscess without bleeding
CPT/HCPCS: 00123; 80053; 96374; 96375; 99285; 74177; 81003; 81015; 83605; 84702; 85025; 99283; J0131; J1885; J3490

== ENCOUNTER 2024-08-05 01:57 | Outpatient (CLI) | payer BC, SELFPAY ==
--- NOTE | 2024-08-05 | DI.MAMMO_ITS ---
Exam(s) US BREAST LT COMPLETE MG MAMMO DIAGNOSTIC BI EXAM: MG MAMMO DIAGNOSTIC BI CLINICAL HISTORY: f/u abnl mammo,r92.8,lt breast microcysts,DUE FOR BILAT. COMPARISON: MG MG MAMMO SCREENING from 07/31/2023 MG MG MAMMO SCREEN CALL BACK UNI from 08/02/2023 MG MG MAMMO DIAGNOSTIC UNI from 02/04/2024 US US BREAST LT COMPLETE from 08/05/2024 TECHNIQUE: Craniocaudal and mediolateral oblique Full Field Digital Mammography views of both breas ts with Computer Aided Diagnosis followed by Tomosynthesis and left breast ultrasound. FINDINGS: Mammography/Tomosynthesis: Masses/Architectural Distortion: Stable bilateral areas of nodularity. No suspicious masses or archi tectural distortion. Microcalcifications: No suspicious pleomorphic-type are seen. Skin Thickening/Nipple Retraction: None. Left breast US: Echotexture: Normal appearance of the glandular tissue. Shadowing: No suspicious foci. Cyst: Multiple stable small cysts. No suspicious masses. Solid lesions: None seen. Ductal dilation: None. IMPRESSION: 1. No evidence of malignancy is noted. Stable appearance of left breast cysts. 2. Unless there is more urgent need, follow-up screening mammography is recommended, as per [employer] guidelines. BI-RADS Category 2 - Benign Findings Breast Density - Category B - Scattered areas of fibroglandular density Breast density category C or D implies that the patient has dense breast tissue. Dense breast tissue is very common and is not abnormal but dense breast tissue can make it harder to find cancer on a ma mmogram. Also, dense breast tissue may increase their breast cancer risk. This information about the result of the mammogram report was provided to the patient to raise their awareness. Use this report when you speak with the patient about their risks for breast cancer, which includes their family hist ory. At that time, you may recommend for more screening tests (Ultrasound or MRI) as they might be us eful based on their risk. A negative radiographic report should not delay biopsy if a dominant or clinically suspicious mass is present. Up to ten percent of cancers are not identified on mammography. A negative report may reinforce clinical impression. Adenosis and dense breasts may obscure an underlying neoplasm. False positive reports average 6 to 10%. Patient will receive a letter notifying them of these results.
== END 2024-08-05 02:17 ==
LOC: DI 01:57
PROVIDERS: Visit Provider Nurse Practitioner Family
DX: Z12.31 Encounter for screening mammogram for malignant neoplasm of breast (principal); R92.8 Other abnormal and inconclusive findings on diagnostic imaging of breast
CPT/HCPCS: 76642; 77062; 77066; G0279

== ENCOUNTER 2025-05-26 19:17 | Outpatient (REF) | payer BC, SELFPAY ==
[2025-05-26 16:00] LABS: Abs Immature Grans 0.03 10^3/uL (0.0-0.06); HCT 42.1 % (36.0-46.0); HGB 14.3 g/dL (11.2-15.7); Immature Grans % 0.4 %; MCH 31.1 pg (27.0-33.0); MCHC 34.0 % (32.0-36.0); MCV 92 fL (80-95); MPV 10.6 fL (8.0-11.0); Platelet Count 238 10^3/uL (130-400); RBC 4.60 10^6/uL (3.93-5.22); RDW 12.6 % (11.7-14.6); RDW-SD 42.5 fL; WBC 8.55 10^3/uL (4.4-10.8)
[2025-05-26 16:14] LABS: Hemoglobin A1C 5.6 % (<5.7)
[2025-05-26 16:18] LABS: ALT 36 U/L (14-59); AST 18 U/L (15-37); Albumin 4.2 g/dL (3.4-5.0); Alkaline Phosphatase 169 U/L (46-116); Anion Gap 9.1 mmol/L (3-11); BUN 15 mg/dL (7-18); Bilirubin, Total 0.5 mg/dL (0.2-1.0); CO2 25.9 mmol/L (21.0-32.0); Calcium 9.3 mg/dL (8.5-10.1); Chloride 104 mmol/L (98-107); Estimated GFR 105.30 (mL/min/1.73m2); Glucose 97 mg/dL (74-106); Potassium 4.3 mmol/L (3.5-5.1); Sodium 139 mmol/L (136-145); TSH (W/Ref FT4) 1.18 uIU/mL (0.36-3.74); Total Protein 7.2 g/dL (6.4-8.2)
== END 2025-05-26 19:18 | disposition home or self-care (01) ==
LOC: NCHCN 19:17
PROVIDERS: Visit Provider Student in an Organized Health Care Education/Training Program
DX: F41.9 Anxiety disorder, unspecified (principal); Z13.1 Encounter for screening for diabetes mellitus; Z13.228 Encounter for screening for other metabolic disorders
CPT/HCPCS: 80053; 83036; 84443; 85025

== ENCOUNTER 2025-06-29 14:05 | Outpatient (REF) | payer BC, SELFPAY | END 2025-06-29 14:06 | disposition home or self-care (01) | LOC: LBN 14:05 | PROVIDERS: PCP Student in an Organized Health Care Education/Training Program; Visit Provider Obstetrics & Gynecology | DX: Z12.4 Encounter for screening for malignant neoplasm of cervix (principal) | CPT/HCPCS: 88142; 87624 ==

== ENCOUNTER 2025-07-22 11:19 | Outpatient (REF) | payer BC, SELFPAY | END 2025-07-22 11:20 | disposition home or self-care (01) | LOC: LBN 11:19 | PROVIDERS: PCP Student in an Organized Health Care Education/Training Program; Visit Provider Obstetrics & Gynecology | DX: R30.0 Dysuria (principal) | CPT/HCPCS: 87077; 87086; 87186 ==

== ENCOUNTER 2025-08-16 07:26 | Outpatient (CLI) | payer BC, SELFPAY ==
--- NOTE | 2025-08-16 08:45 | DI.MAMMO_ITS ---
Exam(s) MAMMO SCREENING EXAM: MAMMO SCREENING CLINICAL HISTORY: screening TECHNIQUE: Mammograms were interpreted according to the usual protocol including computer analysis with CAD system, tomosynthesis and C-view imaging. COMPARISON: 2017 through 2023 FINDINGS: The breasts are composed of scattered fibroglandular densities, Breast Density category B. No suspicious masses or suspicious microcalcifications are seen. There has been interval decrease in areas nodularity in both breasts. No skin thickening or abnormal axillary lymph nodes are seen. There has been no significant change from prior exams. IMPRESSION: BI-RADS Category 2 - Benign Findings Yearly screening mammography is recommended. Breast Density - Category B - There are scattered areas of fibroglandular density. Breast density Category C or D implies that the patient has dense breast tissue. Dense breast tissue can make it harder to find cancer on a mammogram. Dense breast tissue is also associated with an increased risk of breast cancer. This information about the result of the mammogram report was provided to the patient to raise their awareness. Use this report when you speak with the patient about their risks for breast cancer, which includes their family history. At that time, you may recommend additional screening tests (Ultrasound or MRI) as these tests may add significant information. A negative radiographic report should not delay biopsy if a dominant or clinically suspicious mass is present. Up to ten percent of cancers are not identified on mammography. A negative report may reinforce clinical impression. Adenosis and dense breasts may obscure an underlying neoplasm. False positive reports average 6 to 10%. Patient will receive a letter notifying them of these results.
== END 2025-08-16 07:46 ==
PROVIDERS: PCP Student in an Organized Health Care Education/Training Program; Visit Provider Obstetrics & Gynecology
DX: Z12.31 Encounter for screening mammogram for malignant neoplasm of breast (principal); R92.323 Mammographic fibroglandular density, bilateral breasts
CPT/HCPCS: 77063; 77067

== ENCOUNTER 2025-10-29 08:07 | Day surgery (SDC) | payer BC, SELFPAY ==
--- NOTE | 2025-10-28 19:18 | PDOC.DSDIS_ITS ---
Date of service: 10/29/25 Discharge Plan Disposition Patient Disposition: Home Condition: Good Discharge Details Reason For Visit: screening colonoscopy Attending Provider: Stas Carvajal Primary Care Provider: Gokul Perry Home Meds and New Rx's Prescriptions: Continued omeprazole magnesium 20 mg tablet,delayed release (DR/EC) 20 mg PO DAILY Wegovy 0.25 mg/0.5 mL pen injector 0.25 mg subcut QWEEK Rx Instructions: administer weeks 1 through 4 of therapy ibuprofen 200 MG tablet 800 mg PO DAILY PRN sumatriptan succinate 100 MG tablet 100 mg PO ONCE Qty: 9 0RF Rx Instructions: Take at onset of migraine headache. Ok to take a second if no improvement after 1 hr. No more than 2 in a 24hour period. famotidine 20 mg tablet 20 mg PO DAILY sumatriptan succinate 50 mg tablet See Rx Instructions PO .COMPLEX Rx Instructions: take 1 tab at onset of headache; if no relief may repeat 1 tab after at least 2 hrs; max = 4 tabs/24 hr PO oxybutynin chloride 5 mg tablet extended release 24hr 5 mg PO DAILY magnesium 250 mg tablet 250 mg PO DAILY escitalopram oxalate 5 mg tablet 5 mg PO DAILY Discontinued bisacodyl 5 mg tablet,delayed release (DR/EC) 5 mg PO ONCE Qty: 4 0RF Rx Instructions: Per Colonoscopy bowel prep instructions polyethylene glycol 3350 17 gram/dose powder 238 g PO ONCE Qty: 238 0RF Rx Instructions: For Colonoscopy bowel prep, as directed by office Discharge Instructions Instructions: Colon polyps, Diverticulosis Additional Instructions: Kena, it was good meeting you today, and hope you feel well after the procedure. Things went smoothly. I did find, and removed, 2 polyps today. 1 of these is quite small, and certainly nothing to worry about. The other is a little bit larger as far as polyps go. I was able to remove this completely today. Based on its appearance, I suspect that this is what is called an inflammatory polyp. Generally, those polyps are not thought to be particularly risky. To be safe, I will send both polyps to the pathologist for them to review. Regardless of the final pathology, based on the size of this polyp, I recommend a 1 year follow-up. Incidentally, you also have diverticulosis. Thes e are weak spots in the muscular layer of the colon wall that cause the inside lining to pocket or pooch outwards. These pockets are called diverticula, and the condition of having them is known as diverticulosis. These can get infected or inflamed. During those episodes, patients typically experience fairly intense pain on the left lower side of their abdomen. It is often times associated with fevers, and general feeling of illness. Hopefully, your stone bother you. I will attach some basic information here about diverticulosis as well as colorectal polyps. If you need anything at all, please do not hesitate to call. Otherwise, we will be in touch once we have the final results of the pathology report 1. If tolerated, consume a soft, low fiber diet for 1-2 days. 2[address] Do not drive, drink alcohol, operate machinery, make critical decisions, or do activities that require coordination or balance for 24 hours. 3. Because air was put into your colon during the procedure, expelling air from your rectum (passing gas or farting) is normal. 4. You may not have a bowel movement for 1-3 days because of the colonoscopy prep. This is normal. 5. Go directly to the emergency room if you notice any of the following: Develop chills (warm to touch), or if you have a thermometer and your temperature is above 101 Difficulty breathing or difficultly swallowing Persistent vomiting Severe abdominal pain, other than gas cramps Severe chest pain Black, tarry stools Any bleeding ? exceeding one tablespoon 6. Call your physician if the site where your intravenous was started becomes red, swollen, painful, and warm to touch. 7. Your physician has reviewed your pre-procedure medications. Please continue to take those medications as previously ordered. You will be given specific information/education regarding any changes to your medications before leaving. Stand Alone Forms: Anesthesia Discharge [facility] Jatin Penny (DSU), Portal Information Activity:: Activity as Tolerated Diet:: As Tolerated Discharge Orders Discharge Orders: Discharge Order (Routine); Ordered 10/28/25 Ordered By: Stas Carvajal DS: Diagnosis Discharge Diagnosis (1) Encounter for screening colonoscopy: Status: Acute Asessment and Plan: Follow-up on polypectomy results
--- NOTE | 2025-10-28 19:22 | COLE_ITS ---
Date of service: 10/29/25 Time of Service: 10:27 Colonoscopy Report Date of procedure: 10/29/25 Pre-op diagnosis general: screening colonoscopy Post-op diagnosis procedure note: other (Diverticulosis, colon polyps) Procedure: colonoscopy with polypectomy Surgeon: Stas Carvajal Anesthesia Type: General:No Airway Estimated blood loss (mL): 10 Pathology: other (0.25 cm flat polyp at 75 cm, 1.5 cm pedunculated polyp at 40 cm) Complications: None Disposition: same day Indications: Chhaya is a 50 year old woman who needs a screening colonsocopy Prep: Miralax/Dulcolax Procedure Start Time: 09:56 Procedure End Time: 10:16 Retraction Time: 14 Findings: 0.25 cm flat polyp at 75 cm, 1.5 cm pedunculated 40 cm; sigmoid diverticulosis Procedure Description: After the induction of anesthesia, and with Chhaya in left lateral decubitus pos ition, I began by performing an external anorectal exam.? There is evidence of external hemorrhoid disease.? Next, I performed a digital rectal exam.? I did not appreciate any abnormal findings.? Next, I advanced a colonoscope into the rectal vault.? I performed retroflexion.? This appeared normal.? Using insufflation, I then advanced the colonoscope beyond the rectal folds and into the sigmoid colon before advancing towards the cecum.? There is extensive sigmoid diverticulosis.? The scope was noted to be in the cecum by identification of the ileocecal valve and appendiceal orifice.? I then began withdrawing the colonoscope using repeated irrigation as necessary for full evaluation of the colonic mucosa. ?Around 75 cm past the anal verge is a 0.25 cm flat polyp. I removed this with cold forceps with minimal bleeding. Found another polyp at 40 cm past the anal verge. This was about 1.5 cm. This is pedunculated. I removed this in piecemeal using energize snare polypectomy. The resection was complete. Once the scope was withdrawn to the level of the rectum, great care was taken to examine portions of the rectal folds.? Finally, the scope was withdrawn and the patient was brought to the same-day surgery recovery unit as the anesthetic wore off. ?The findings and instructions were shared with the patient prior to discharge. [place] Bowel Prep [place] Bowel Prep Right Colon: 3 Left Colon: 2 Transverse Colon: 3 Total Score: 8
[2025-10-29 08:18] VITALS: BP 121/76; PULSE 93; RESP 16; TEMP 36.5; O2SAT 95
[2025-10-29] MEDS: Lactated Ringers 1,000 ML 80 ML IV (08:50)
--- NOTE | 2025-10-29 09:14 | W.ANESPRE ---
General Info Date of Service Date Performed: 10/29/25 Height: 5 ft 5 in Weight: 110.8 kg Body Mass Index (BMI): 40.6 Surgical Procedure: Operation Date: 10/29/25 09:50 Proposed Procedure Side Surgeon apurva Carvajal MD Meds Allergies and Home Medications Allergies Allergy/AdvReac Type Severity Reaction Status Date / Time Penicillins AdvReac Intermediate stomach Verified 10/29/25 08:16 cramps and diarrhea venom-honey bee AdvReac Intermediate Swelling/Ed Verified 10/29/25 08:16 tyra Home Medication ?Medication ?Instructions ?Recorded ibuprofen 200 mg tablet 800 mg PO DAILY PRN 06/29/16 sumatriptan succinate 100 mg tablet 100 mg PO ONCE #9 tab-caps 09/24/17 famotidine 20 mg tablet 20 mg PO DAILY 06/16/25 Held on 10/29/25. Instructions: not taking magnesium 250 mg tablet 250 mg PO DAILY 06/16/25 oxybutynin chloride 5 mg 5 mg PO DAILY 06/16/25 tablet,extended release 24 hr sumatriptan succinate 50 mg tablet See Rx Instructions PO .COMPLEX 06/16/25 escitalopram oxalate 5 mg tablet 5 mg PO DAILY 06/29/25 omeprazole magnesium 20 mg 20 mg PO DAILY 10/14/25 tablet,delayed release semaglutide (weight loss) 0.25 0.25 mg subcut QWEEK 10/14/25 mg/0.5 mL subcutaneous pen injector (Edie) Current Visit Medications: Current Medications Generic Name Dose Route Start Last Admin Trade Name Freq PRN Reason Stop Dose Admin Ringer's Solution 1,000 mls @ 80 mls/hr 10/29/25 06:00 10/29/25 08:50 IV 10/29/25 23:59 80 mls/hr INFUSION BRENDA Administration Sodium Chloride 0 ml 10/29/25 06:00 Normal Saline Flush 10 Ml Syr IV 10/29/25 23:59 PRN PRN Sodium Chloride 0 ml 10/29/25 06:00 Normal Saline 10 Ml Vial IJ 10/29/25 23:59 DIRECTED PRN Sterile Water 0 ml 10/29/25 06:00 Water,Injection,Sterile 10 Ml Vial IJ 10/29/25 23:59 DIRECTED PRN PFSH Active Problems Active Problems: Problem Status Onset Code Normal screening colonoscopy Acute Z12.11 Menopausal and female climacteric states Acute N95.1 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 Acute M16.31 Menopausal symptoms Acute N95.1 Irregular periods Acute N92.6 GERD (gastroesophageal reflux disease) Chronic K21.9 Mild anxiety Acute F41.9 Obesity with body mass index 30 or greater Acute E66.9 Microscopic hematuria Acute R31.29 Urinary incontinence Acute R32 Bilateral primary osteoarthritis of hip Acute M16.0 Medical History Medical History Migraine Dysplasia of cervix Obesity Degenerative joint disease (DJD) of hip Abnormal uterine bleeding (AUB) Fatigue Abnormal mammogram Tobacco use Heavy menstrual bleeding Surgical History Surgical History H/O bilateral hip replacements H/O right breast biopsy Tobacco Smoking/Tobacco Use Status: Current every day Tobacco Type: cigarettes Smoking cigarettes per day: 10 Passive smoking exposure: No Alcohol Alcohol Intake: current Alcohol intake frequency: holidays/special occasions only Alcohol type: wine and hard liquor Substance Use Substance use: Never Substance use type: does not use Vital Signs and Lab Results Vital Signs Most Recent Vital Signs in EMR: Most Recent Vital Signs Temp Pulse Resp BP Pulse Ox 36.5 C 93 H 16 121/76 95 10/29/25 08:18 10/29/25 08:18 10/29/25 08:18 10/29/25 08:18 10/29/25 08:18 Point of Care Results Point of Care Results: POC- Test(urine) Negative 10/29/25 08:33 Anesthesia Assessment and Plan Anesthesia History Personal History: No History of Anesthesia Complications Family History: No Family History of Anesthesia Complications Exercise Tolerance Exercise Tolerance: Metabolic Equivalents>4 Cardiac & Pulmonary Exam Cardiac Exam: Normal S1/S2 Heart Sounds Pulmonary Exam: Clear Bilateral Breath Sounds Implantable Cardiac Device Does patient have a Pacemaker or an ICD?: No Airway Exam Known Difficult Airway: No Mallampati Class: 3 Mouth Opening: Narrow (< 3cm) Thyromental Distance: Greater than 3 cm Neck Range of Motion: Full ROM Neck Circumference: Thick Teeth Condition: Normal Dentition ASA Classification ASA Score: ASA 3 Emergency Case?: No NPO Status NPO Status: NPO Clears >2 hours, Solids >8 hours Status Status: Negative HCG Anesthesia Plan Resuscitation Status: Full Code Anesthesia Technique: General Anesthesia Airway Planned: Natural Airway Monitors Used: Standard Monitors Preoperative Comments:: 50 yo for colo. Sig PMHx: GERD (omeprazole. well controlled), anxiety (escitalopram), BMI 40 (semaglutide, last dose 15 days ago), migraine (sumatriptan). Smoker, occ EtOH.
[2025-10-29 09:17] VITALS: BMI 40.6
--- NOTE | 2025-10-29 10:05 | BOWEL_PTH ---
PATIENT: Chhaya Zafar LOC: [facility] U#:[id number] AGE/SX: 50/F ROOM: RE10/29/[address]: Stas Carvajal MD : 1975 BED: DIS: 10/29/2025 SPEC #: [id number] RECD: 10/29/25 12:18 STATUS: JEROME RE #: [id number] JOHN: 10/29/25 10:[address]: Stas Carvajal DEPT: Surgical Specimen RECD BY: Tanya Higgins ENTERED: 10/29/25 12:20 SP TYPE: Bowel OTHR DR: Gokul Perry Tissues: 1 - BIOPSY BOWEL 2 - BIOPSY BOWEL Procedures: GROSS AND MICRO LEVEL 4 Comments: [id number]
[2025-10-29 10:20] VITALS: BP 120/71; PULSE 77; RESP 16; TEMP 36.2; O2SAT 98
--- NOTE | 2025-10-29 10:31 | W.ANESPOSTOP ---
Postoperative Evaluation Date, Time and Location Date Performed: 10/29/25 Time Performed: 10:31 Patient Location: Day Surgery Unit Vital Signs Most Recent Imported Vital Signs: Most Recent Vital Signs Temp Pulse Resp BP Pulse Ox 36.2 C L 77 16 120/71 98 10/29/25 10:20 10/29/25 10:20 10/29/25 10:20 10/29/25 10:20 10/29/25 10:20 Pain Score Most Recent Pain Score: Most Recent Pain Score Pain Level 0 10/29/25 10:20 Assessment Mental Status: Awake (Alert & Oriented to Patient Baseline) Airway and Respiratory Function: Patent airway with normal (patient baseline) respiratory exam Cardiovascular Function: Hemodynamically Stable Hydration Status: Adequately Hydrated Nausea & Vomiting: No Nausea or Vomiting Pain: Pt. Denies Any Pain Peripheral Nerve Block: Patient did not receive a nerve block
[2025-10-29 10:45] VITALS: BP 121/59; PULSE 63; RESP 16; TEMP 36; O2SAT 98
== END 2025-10-29 11:05 | disposition home or self-care (01) ==
LOC: SUR 08:08
PROVIDERS: PCP Student in an Organized Health Care Education/Training Program; Visit Provider Surgery
PROC: 0DJD8ZZ Inspection of Lower Intestinal Tract, Via Natural or Artificial Opening Endoscopic (ICD-10-PCS; CPT 45378; principal; 2025-10-29 09:45)
DX: Z12.11 Encounter for screening for malignant neoplasm of colon (principal); D12.5 Benign neoplasm of sigmoid colon; K21.9 Gastro-esophageal reflux disease without esophagitis; K57.30 Diverticulosis of large intestine without perforation or abscess without bleeding; F41.9 Anxiety disorder, unspecified; Z72.0 Tobacco use; E66.9 Obesity, unspecified
CPT/HCPCS: 45385; 45380; 81025; 88305; J2704